=== PATIENT | female | born 1935 | race Caucasian/White ===

== ENCOUNTER → 2017-06-19 09:21 | Outpatient (CLI) | payer MEDICARE | END | disposition home or self-care (01) | LOC: D.RAD 09:21 | DX: R13.10 Dysphagia, unspecified (principal) ==

== ENCOUNTER 2017-10-03 02:02 | Emergency (ER) | payer MEDICARE ==
[2017-10-03 02:41] LABS: APPEARANCE CLEAR (CLEAR); BILIRUBIN NEGATIVE (NEGATIVE); COLOR YELLOW (YELLOW); GLUCOSE NEGATIVE (NEGATIVE); KETONE NEGATIVE (NEGATIVE); NITRITE NEGATIVE (NEGATIVE); PROTEIN NEGATIVE (NEGATIVE); SPECIFIC GRAVITY 1.015 (1.005-1.020); UROBILINOGEN NORMAL (NORMAL)
[2017-10-03 02:43] LABS: BACTERIA FEW /hpf (NONE SEEN); EPITHELIAL CELLS 0-5 /hpf (0-5); RED CELLS - URINE 0-5 /hpf (0-5); WHITE CELLS - URINE 0-5 /hpf (0-5)
[2017-10-03 03:12] LABS: BASOPHILS 0.3 % (0-2); EOSINOPHILS 3.5 % (0-7); HEMATOCRIT 38.2 % (36.0-48.0); HEMOGLOBIN 13.2 g/dL (12-16); IMMATURE GRANULOCYTES 0.2 % (0-5); LYMPHOCYTES 16.9 % (15-50); MCH 29.9 pg (26.0-34.0); MCHC 34.6 g/dL (31.0-37.0); MCV 86.4 fL (80.0-100.0); MEAN PLATELET VOLUME 11.6 fL (7.4-10.4); MONOCYTES 9.3 % (2-11); NEUTROPHILS 69.8 % (40-80); RBC 4.42 10x6/uL (4.00-5.40); RDW 12.6 % (11.5-14.5); WBC 12.8 10x3/uL (4.8-10.8)
[2017-10-03 03:22] LABS: PLATELET COUNT 239 10x3/uL (130-400)
== END 2017-10-03 03:51 | disposition home or self-care (01) ==
LOC: D.ER 02:02
PROVIDERS: Emergency Medicine
DX: R19.7 Diarrhea, unspecified (principal); I10 Essential (primary) hypertension

== ENCOUNTER → 2019-02-16 12:46 | Outpatient (CLI) | payer MEDICARE | END | disposition home or self-care (01) | LOC: D.US 12:46 | PROVIDERS: ATTEND Internal Medicine Nephrology | DX: N17.9 Acute kidney failure, unspecified (principal) ==

== ENCOUNTER 2019-10-19 10:51 | Emergency (ER) | payer MEDICARE ==
[~2019-10-19] VITALS: Ht 160 cm; Wt 60.0 kg
[2019-10-19 10:57] VITALS: Ht 160 cm; Wt 60.0 kg
[2019-10-19] MEDS ORDERED: LIORESAL 10 MG10 MG PO (10:59)
[2019-10-19] MEDS ORDERED: PROTONIX40 MG PO (10:59)
[2019-10-19] MEDS ORDERED: BETAPACE 80 MG80 MG PO (10:59)
[2019-10-19] MEDS ORDERED: TRIAMTERENE-HC1 EAC6 PO (10:59)
[2019-10-19] MEDS ORDERED: PRAVACHOL20 MG PO (10:59)
[2019-10-19] MEDS ORDERED: VITAMIN D250000 UNIT PO (11:00)
[2019-10-19 11:21] LABS: BASOPHILS 0.4 % (0-2); EOSINOPHILS 3.1 % (0-7); HEMATOCRIT 40.7 % (36.0-48.0); HEMOGLOBIN 13.6 g/dL (12-16); IMMATURE GRANULOCYTES 0.3 % (0-5); LYMPHOCYTES 18.6 % (15-50); MCH 28.7 pg (26.0-34.0); MCHC 33.4 g/dL (31.0-37.0); MCV 85.9 fL (80.0-100.0); MEAN PLATELET VOLUME 11.2 fL (7.4-10.4); MONOCYTES 8.6 % (2-11); PLATELET COUNT 243 10x3/uL (130-400); RBC 4.74 10x6/uL (4.00-5.40); RDW 12.5 % (11.5-14.5); WBC 7.5 10x3/uL (4.8-10.8)
[2019-10-19 11:33] LABS: CALC OSMOLALITY 291 mosm/kg (275-300); CALCIUM 10.1 mg/dL (8.5-10.1); CARBON DIOXIDE 29.9 mmol/L (21.0-32.0); CHLORIDE - SERUM 103 mmol/L (98-107); CREATININE - SERUM 1.8 mg/dL (0.6-1.3); GLUCOSE 141 mg/dL (74-106); POTASSIUM - SERUM 4.6 mmol/L (3.5-5.1); SODIUM 139 mmol/L (136-145); UREA NITROGEN 45 mg/dL (7-18); eGFR NON AFRICAN AMERICAN 28 mL/min (90-120)
[2019-10-19 11:41] LABS: ALBUMIN 3.9 g/dL (3.4-5.0); ALKALINE PHOSPHATASE 69 U/L (46-116); ALT (SGPT) 22 U/L (10-68); AMYLASE - SERUM 50 U/L (25-115); BILIRUBIN - TOTAL 0.33 mg/dL (0.2-1.3); LIPASE 90 U/L (73-393); PROTEIN - SERUM 7.2 g/dL (6.4-8.2); TROPONIN-I < 0.017 ng/mL (0.000-0.060)
[2019-10-19 11:52] LABS: APPEARANCE CLEAR (CLEAR); COLOR YELLOW (YELLOW)
[2019-10-19 11:53] LABS: BILIRUBIN NEGATIVE (NEGATIVE); GLUCOSE NEGATIVE (NEGATIVE); KETONE NEGATIVE (NEGATIVE); NITRITE NEGATIVE (NEGATIVE); PROTEIN NEGATIVE (NEGATIVE); SPECIFIC GRAVITY 1.015 (1.005-1.020); UROBILINOGEN NORMAL (NORMAL)
[2019-10-19] MEDS ORDERED: LEVSIN/ANASP0.125 MG PO (14:47)
[2019-10-19] MEDS ORDERED: ZOFRAN ODT4 MG/UDTAB PO (14:47)
[2019-10-19 15:46] VITALS: BP 140/78
== END 2019-10-19 15:51 | disposition home or self-care (01) ==
LOC: D.ER 10:51
PROVIDERS: Family Medicine
DX: R10.31 Right lower quadrant pain (principal); N28.9 Disorder of kidney and ureter, unspecified; R73.03 Prediabetes; I10 Essential (primary) hypertension; E78.5 Hyperlipidemia, unspecified; I25.2 Old myocardial infarction; K21.9 Gastro-esophageal reflux disease without esophagitis

== ENCOUNTER 2020-01-26 14:41 | Emergency (ER) | payer MEDICARE ==
[~2020-01-26] VITALS: Ht 160 cm; Wt 58.6 kg
[~2020-01-26 14:41] MED LIST: BETAPACE 80 MG80 MG PO; LEVSIN/ANASP0.125 MG PO; LIORESAL 10 MG10 MG PO; PRAVACHOL20 MG PO; PROTONIX40 MG PO; TRIAMTERENE-HC1 EAC6 PO; VITAMIN D250000 UNIT PO; ZOFRAN ODT4 MG/UDTAB PO
[2020-01-26 14:49] VITALS: Ht 160 cm; Wt 58.6 kg
[2020-01-26 15:10] LABS: BASOPHILS 0.5 % (0-2); EOSINOPHILS 4.7 % (0-7); HEMATOCRIT 35.2 % (36.0-48.0); HEMOGLOBIN 11.3 g/dL (12-16); LYMPHOCYTES 24.8 % (15-50); MCH 28.3 pg (26.0-34.0); MCHC 32.1 g/dL (31.0-37.0); MEAN PLATELET VOLUME 11.7 fL (7.4-10.4); MONOCYTES 8.3 % (2-11); NEUTROPHILS 61.7 % (40-80); PLATELET COUNT 240 10x3/uL (130-400); WBC 6.6 10x3/uL (4.8-10.8)
[2020-01-26 15:26] LABS: BILIRUBIN NEGATIVE (NEGATIVE); GLUCOSE NEGATIVE (NEGATIVE); KETONE NEGATIVE (NEGATIVE); NITRITE NEGATIVE (NEGATIVE); SPECIFIC GRAVITY 1.015 (1.005-1.020); UROBILINOGEN NORMAL (NORMAL)
[2020-01-26 15:27] LABS: ANION GAP 12.5 mmol/L (8-16); CALCIUM 9.4 mg/dL (8.5-10.1); CARBON DIOXIDE 26.5 mmol/L (21.0-32.0); CREATININE - SERUM 1.7 mg/dL (0.6-1.3)
[2020-01-26 15:28] LABS: BACTERIA FEW /hpf (NEGATIVE); RED CELLS - URINE 0-5 /hpf (0-5); WHITE CELLS - URINE 0-5 /hpf (NEGATIVE)
[2020-01-26 15:33] LABS: ALBUMIN 3.6 g/dL (3.4-5.0); BILIRUBIN - TOTAL 0.49 mg/dL (0.2-1.3); PROTEIN - SERUM 7.2 g/dL (6.4-8.2)
[2020-01-26] MEDS ORDERED: HYDROCODON-ACE1 EAC7 PO (17:46)
[2020-01-26] MEDS ORDERED: PREVACID30 MG PO (17:46)
[2020-01-26 18:03] VITALS: BP 110/50
== END 2020-01-26 18:04 | disposition home or self-care (01) ==
LOC: D.ER 14:41
PROVIDERS: Emergency Medicine
DX: R10.10 Upper abdominal pain, unspecified (principal); K21.9 Gastro-esophageal reflux disease without esophagitis

== ENCOUNTER 2020-05-06 01:08 | Observation (INO) | payer MEDICARE ==
[~2020-05-06] VITALS: Ht 160 cm; Wt 59.0 kg
[2020-05-06] VITALS (8 sets, daily range): BP systolic 128–185; BP diastolic 49–86; Ht 160 cm; Wt 59.0 kg
--- NOTE | ~2020-05-06 | HEMODYNAMI ---
PATIENT:TRINO SAMS MEDICAL RECORD: [id number] : 31 LOCATION:[place] [address] ADMISSION DATE: 05/06/20 Generatedon:05/06/202013:19 Patient name: TRINO SAMS Patient #: [id number] SSN: [id number] : 1935 Date of study: 05/06/2020 Page: Of Hemodynamic Procedure Report Patient Data Patient Demographics Procedure consent was obtained First Name: TRINO Gender: Female Last Name: LATRELL : 1935 Patient #: [id number] Age: 84 year(s) Race: SSN: [id number] Additional ID: [id number] Contact details [address]: [address] [place] [address] [address] State: [place] City: [facility] [place] Zip code: [address] Past Medical History History of disease Date Diagnosis Comments CAD Allergies: No known allergies Admission Admission Data Admission Date: 05/06/2020 Admission Time: 6:34 Room #: [facility]8 Height (in.): 59 BSA: 1.68 (m2) Height (cm.): 149.86 BMI: 32.32 (kg/m2) Weight (lbs.): 160 Weight (kg.): 72.57 Medications upon Admission Medications Dosage Times Administered Last Remarks per Delivery Day Date and Time Beta Gregg (any) Current Diagnosis Diagnosis Description Unstable angina Lab Results Lab Result Date: 05/06/2020 Lab Result Time: 0:00 Biochemistry Name Units Result Min Max BUN mg/dl 30 --(----)-* 7 18 Creatinine mg/dl 1.5 --(----)-* 0.6 1.3 eGFR ml/min 35 *-(----)-- 90 120 NONAFRICAN CBC Name Units Result Min Max Hemoglobin g/dl 10.5 *-(----)-- 13.5 17.5 Procedure Procedure Types Cath Procedure Diagnostic Procedure [facility] w/Coronaries Sedation Charges Moderate Sedation up to 30 minutes PCI Procedure Coronary Stent Coronary Stent Initial Hemochron ACT Test Procedure Description Procedure Date Procedure Date: 05/06/2020 Procedure Start Time: 12:49 Procedure End Time: 13:17 Procedure Staff Name Function Tone Romero MD Performing Physician Enriqueta Sidhu RT Monitor Farida Mccormick RN Nurse Sita Kelsey RT Scrub Procedure Data Cath Procedure Fluoroscopy Diagnostic fluoroscopy Total fluoroscopy Time: 7.6 time: 7.6 min min Diagnostic fluoroscopy Total fluoroscopy dose: 781 dose: 781 mGy mGy Contrast Material Contrast Material Type Amount (ml) Isovue 300 129 Entry Location Entry Primary Successful Side Size Upsize Upsize Entry Closure Succes sful Closure Location (Fr) 1 (Fr) 2 (Fr) Remarks Device Remarks Femoral Right 5 Fr 6 Fr artery Short Diagnostic catheters Device Type Used For End Catheter Placement MULTIPACK JL 4.0 5Fr Procedure catheter MULTIPACK 3DRC 5Fr Procedure catheter DIAGNOSTIC AR MOD 5Fr Procedure Catheter ([id number]) DIAGNOSTIC JR 4 5Fr Procedure catheter ([id number]) MULTIPACK Pigtail 5 Fr Ventriculography catheter Procedure Complications No complications Procedure Medications Medication Administration Route Dosage 0.9% NaCl I.V. 100 ml/hr Oxygen etCO2 Nasal cannula 2 l/min Lidocaine 2% added to field 20 Heparin Flush Bag added to field 2 bags (1000units/500ml NS) Versed I.V. 2 mg Fentanyl I.V. 50 mcg Heparin Bolus I.V. 5000 units Integrilin (Bolus I.V. 5 ml 2mg/ml) Integrilin (Bolus wasted 5 ml 2mg/ml) Plavix P.O. 600 mg Fentanyl I.V. 50 mcg Hemodynamics Rest BSA: 1.68 (m2) O2 Consumption: Estimated: 147.73 (ml/min) O2 Consumption indexed : Estimated:87.93 (ml/min/m) Heart Rate: 68 (bpm) Pressure Samples Time Site Value (mmHg) Purpose Heart Use Rate(bpm) 13:00 LV 166/11,16 Snapshot 67 13:01 AO 152/75(108) Pullback 67 13:01 LV 164/5,20 Pullback 67 Gradients Valve Time Site 1 Site 2 Mean SEP/DFP Peak To Heart Use (mmHg) (sec/min) Peak Rate (mmHg) (bpm) Aortic 13:01 LV AO 25 12 12 67 164/5,20 152/75(108) Calculations Valve P-P Mean Valve Index Valve Source Name Gradient Area Flow (cm2) Aortic 12 25 12 25 Snapshots Pre Cath Intra NCS Post Cath Vital Signs Time Heart Resp SPO2 etCO2 NIBP (mmHg) Rhythm Pain Sedation Rate (ipm) (%) (mmHg) Status Level (bpm) 12:40:15 61 14 98 23.1 Measuring NSR 0 (11) 10(A) , No pain 12:40:44 60 14 97 29 183/75(151) NSR 0 (11) 10(A) , No pain 12:45:14 63 16 97 22.4 193/80(143) NSR 0 (11) 10(A) , No pain 12:49:38 68 14 98 26.1 185/90(143) NSR 0 (11) 10(A) , No pain 12:54:07 71 14 97 31.3 189/89(150) NSR 0 (11) 10(A) , No pain 12:58:37 64 14 97 29 165/74(122) NSR 0 (11) 10(A) , No pain 13:03:03 68 13 98 32 175/72(142) NSR 0 (11) 10(A) , No pain 13:07:27 67 16 96 27.6 164/78(125) NSR 0 (11) 10(A) , No pain 13:11:49 71 16 96 29.8 179/84(137) NSR 0 (11) 10(A) , No pain 13:16:18 75 15 96 25.3 185/83(109) NSR 0 (11) 10(A) , No pain Medications Time Medication Route Dose Verified Delivered Reason Notes Effectiveness by by 12:36:56 0.9% NaCl I.V. 100 Tone Iqbal used for ml/hr Heather Jace procedure MD NOVAK 12:37:02 Oxygen etCO2 2 Tone Iqbal used for Nasal l/min Heather Jace procedure cannula MD NOVAK 12:37:07 Lidocaine 2% added 20ml Tone Wayne for local to vial [facility] anesthetic field MD SMITH 12:37:11 Heparin Flush added 2 Tone Schofieldory used for Bag to bags [facility] procedure (1000units/500ml field MD SMITH NS) 12:48:05 Versed I.V. 2 mg Tone Wayne for sedation [facility] Jose Miguel Romero MD, MD 12:48:15 Fentanyl I.V. 50 Tone Wayne for sedation mcg [facility] Jose Miguel Romero MD, MD 12:53:47 Fentanyl I.V. 50 Tone Iqbal for sedation mcg [facility] Jose Miguel Mccormick MD RN 12:55:08 Heparin Bolus I.V. 5000 Tone Wayne for verif ied units HeatherJose Miguel Romero anticoagulation with Dr. MD MD Hernandez 12:55:21 Integrilin I.V. 5 ml Tone Quinteroyla for (Bolus 2mg/ml) [facility] Jose Miguel Mccormick antiplatelet RN therapy 12:55:37 Integrilin wasted 5 ml Tone Loraa for (Bolus 2mg/ml) [facility] Jose Miguel Mccormick antiplatelet RN therapy 12:55:42 Plavix P.O. 600 Tone Loraa for mg [facility] Jose Miguel Mccormick antiplatelet RN therapy Procedure Log Time Note 12:16:10 Informed consent obtained and on chart 12:19:07 ACC Patient presents with Unstable Angina CCS Anginal Class 3--Marked limitation of physical activity, angina occurs with ordinary activity.. 12:19:24 ACCPatient has been prescribed/administered the following anti-anginal medication within the last 2 weeks: Beta Gregg 12:19:27 Procedure Status Urgent Heart Cath (IP). 12:19:31 Sita GARCIA(R) (CV) sent for patient. Start room use. 12:19:33 Time tracking: Regular hours (M-F 7:00 - 5:00) 12:19:36 Plan of Care:Hemodynamics will remain stable., Cardiac rhythm will remain stable., Comfort level will be maintained., Respiratory function will remain adequate., Patient/ family verbilizes understanding of procedure., Procedure tolerated without complication., Recovers from procedure without complications.. 12:19:40 Full Disclosure recording started 12:19:44 H&P Date Dictated: 05/06/2020 Within 30 days and on chart.. 12:19:48 Patient NPO since Midnight. 12:19:58 Patient allergic to No known allergies 12:20:01 Is the patient allergic to Iodine/contrast media? No. 12:20:02 Was the patient premedicated? N/A 12:20:06 Is patient on blood thinner?No 12:20:51 ACC The patient was administered the following blood thiners within the last 24 hours: ACCAspirin 12:21:31 Patient diabetic? No. 12:21:33 If diabetic: On Metformin? N/A 12:21:35 Patient not . Patient has had hysterectomy. 12:26:55 Patient Height : 59 inches 12:26:58 Patient Weight : 160 lbs 12:27:43 Current Diagnosis : Unstable angina 12:36:56 0.9% NaCl 100 ml/hr I.V. was administered by Farida Mccormick RN; used for procedure; Verbal order read back and verified. 12:37:02 Oxygen 2 l/min etCO2 Nasal cannula was administered by Farida Mccormick RN; used for procedure; Verbal order read back and verified. 12:37:07 Lidocaine 2% 20ml vial added to field was administered by Tone Romero MD; for local anesthetic; Verbal order read back and verified. 12:37:11 Heparin Flush Bag (1000units/500ml NS) 2 bags added to field was administered by Tone Romero MD; used for procedure; Verbal order read back and verified. 12:37:47 Lab Result : Hemoglobin 10.5 g/dl 12:37:47 Lab Result : eGFR NONAFRICAN 35 ml/min 12:37:47 Lab Result : BUN 30 mg/dl 12:37:47 Lab Result : Creatinine 1.5 mg/dl 12:38:11 Warm blankets applied, and jonel hugger turned on for patient comfort. 12:38:12 Correct patient and procedure confirmed by team. 12:38:13 ECG and BP/O2 sat monitors applied to patient. 12:38:25 Vital chart was started 12:38:26 Baseline sample Acquired. 12:38:30 Rhythm: sinus rhythm 12:38:43 Snore? No 12:38:45 Sleep apnea? No 12:38:52 Patient pain scale 0/10 ?. 12:38:59 IV patent on arrival in right forearm with 0.9% NaCl at [facility]. 12:39:04 Lab results completed and on chart. 12:39:08 Right groin area was prepped with chlora-prep and draped in sterile fashion 12:39:10 Sharps counted by scrub and verified by R.N. 12:47:51 Physician arrived 12:47:52 --------ALL STOP TIME OUT------ 12:47:53 Final Timeout: patient, procedure, and site verified with staff and physician. All members of the team are in agreement. 12:47:54 Right groin site verified by team. 12:47:58 Fire Safety Assessment: A--An alcohol-based skin anteseptic being used preoperatively., C--Open oxygen or nitrous oxide is being used., D--An ESU, laser, or fiber-optic light is being used. 12:48:01 Physical assessment completed. ASA score P 2 - A patient with mild systemic disease as per Tone Romero MD. 12:48:05 Versed 2 mg I.V. was administered by Tone Romero MD; for sedation; Verbal order read back and verified. 12:48:06 3b) 30-44 Moderately reduced kidney function. 12:48:12 Maximum allowable contrast dose (3.7 X eGFR X 0.75)97 ml. 12:48:15 Fentanyl 50 mcg I.V. was administered by Tone Romero MD; for sedation; Verbal order read back and verified. 12:48:17 Sedation plan: IV Moderate Sedation Medication:Versed, Fentanyl 12:48:22 Use device set Femoral Dx 12:48:23 ACIST Syringe (93202) opened to sterile field. 12:48:23 Bag Decanter (2002S) opened to sterile field. 12:48:24 Medline Cath Pack ([id number]) opened to sterile field. 12:48:25 ACIST Hand Control (26379) opened to sterile field. 12:48:25 ACIST Manifold (39961) opened to sterile field. 12:48:26 DIAGNOSTIC Multipack 5Fr catheter set (BG9312) opened to sterile field. 12:48:35 Tegaderm 4 x 4 (1626W) opened to sterile field. 12:48:36 SHEATH 5FR [place] (ZLX805) opened to sterile field. 12:48:37 EMERALD Guide Wire (583-579) opened to sterile field. 12:48:42 Procedure started. 12:49:08 Local anesthetic to right femoral artery with Lidocaine 2% by Tone Romero MD.INITIAL ACCESS ONLY 12:49:23 A 5 Fr sheath was inserted into the Right Femoral artery 12:49:54 A MULTIPACK JL 4.0 5Fr catheter was advanced over the wire and used for Procedure. 12:49:57 LCA angiography performed. 12:52:50 GUIDE 6FR XBLAD 3.5 catheter ([id number]) opened to sterile field. 12:52:50 INFLATOR Merit BasixCompak (IS4480) opened to sterile field. 12:52:51 WHISPER 300cm guide wire (0853529NM) opened to sterile field. 12:52:52 SHEATH 6FR [place] (CCG035) opened to sterile field. 12:53:07 Sheath upsized to a 6 Fr Short. 12:53:26 A MULTIPACK 3DRC 5Fr catheter was advanced over the wire and used for Procedure. 12:53:47 Fentanyl 50 mcg I.V. was administered by Farida Mccormick RN; for sedation; Verbal order read back and verified. 12:53:55 UNABLE TO CANNULATE THE RIGHT 12:54:14 A DIAGNOSTIC AR MOD 5Fr Catheter (275397W) was advanced over the wire and used for Procedure. 12:55:08 Heparin Bolus 5000 units I.V. was administered by Tone Romero MD; for anticoagulation; verified with Dr. Hernandez Verbal order read back and verified. 12:55:21 Integrilin (Bolus 2mg/ml) 5 ml I.V. was administered by Farida Mccormick RN; for antiplatelet therapy; Verbal order read back and verified. 12:55:37 Integrilin (Bolus 2mg/ml) 5 ml wasted was administered by Farida Mccormick RN; for antiplatelet therapy; Verbal order read back and verified. 12:55:42 Plavix 600 mg P.O. was administered by Farida Mccormick RN; for antiplatelet therapy; Verbal order read back and verified. 12:56:43 UNABLE TO CANNULATE 12:57:35 A DIAGNOSTIC JR 4 5Fr catheter ([id number]) was advanced over the wire and used for Procedure. 12:59:45 RCA angiography performed. 12:59:48 Catheter removed. 12:59:55 A MULTIPACK Pigtail 5 Fr catheter was advanced over the wire and used for Ventriculography. 13:00:06 LV angiography performed. 13:00:10 LV gram done using SALINAS 13:01:05 EF : 55 % 13:01:47 6 Fr XBLAD3.5 guide catheter was inserted over the wire 13:01:53 WHISPER wire advanced. 13:02:28 Wire advanced across lesion. 13:07:05 Inflate balloon Inflation number: 1 A EUPHORA 2.5 x 15 Balloon ([id number]) was prepped and advanced across the Mid CX 90, then inflated to 10 JAYNE for 0:32 (min:sec) 0. 13:07:39 Balloon removed over the wire. 13:10:45 Place stent Inflation Number: 1 A INTEGRITY RX 3.0 x 15 stent ([id number]) was prepped and advanced across the Mid CX1 90. The stent was deployed at 14 JAYNE for 0:21 (min:sec) 0. 13:11:08 EXOSEAL 6Fr (EX600) opened to sterile field. 13:11:37 Inflation number: 2 The stent balloon was then re-inflated across the Mid CX1 0 to 8 JAYNE for 0:20 (min:sec) . 13:12:51 Stent catheter was removed intact over wire. 13:12:52 Wire removed. 13:12:54 Guide catheter removed. 13:13:32 Procedure ended.(Physican Out) 13:13:43 Fluoroscopy time 07.60 minutes. 13:13:47 Fluoroscopy dose: 781 mGy 13:13:47 Flurop Dose total: 781 13:13:53 Dose Area Product 85823 mGy/cm. 13:14:39 Contrast amount:Isovue 300 129ml. 13:14:46 Maximum allowable dose exceeded? Yes. 13:14:53 Insertion/operative site no bleeding no hematoma. 13:14:57 Post-op/insertion site Right Femoral artery dressed using a 4 x 4 and Tegaderm. 13:15:00 Post right femoral artery:stable 13:15:08 Post-procedure physical assessment completed. ASA score P 3 - A patient with severe systemic disease as per Tone Romero MD. 13:15:11 Post procedure rhythm: sinus rhythm 13:16:02 Procedure type changed to Cath procedure, Diagnostic procedure, LHC, LHC w/Coronaries, Sedation Charges, Moderate Sedation up to 30 minutes, PCI procedure, Coronary Stent, Coronary Stent Initial, Hemochron ACT Test 13:16:03 Procedure and supply charges have been captured, reviewed, submitted and are correct. 13:17:25 Procedure Complication : No complications 13:17:28 Vital chart was stopped 13:17:30 [facility] Findings: mild to moderate CAD (<70%) 13:17:32 Operative report dictated upon procedure completion. 13:17:33 See physician's report for complete and final results. 13:17:35 Report given to [facility]. 13:17:39 Patient transfered to [facility] with Stretcher. 13:17:43 Procedure ended. 13:17:43 Full Disclosure recording stopped 13:17:46 End room use (Document Last) 13:17:48 ACT drawn and resulted at 262 seconds. (normal therapeutic range 180-240 seconds). 13:17:57 ACC-PCI Only Patient was given prescriptions, or instructed by Tone Romero MD to start/continue the following medications upon discharge: Plavix Intervention Summary Intervention Notes Time ActionType Lesion and Equipment Action# Pressure Duration Attributes Used 13:07:05 Inflate Mid CX EUPHORA 2.5 1 10 00:33 balloon x 15 Balloon ([id number]) 13:10:45 Place stent Mid CX1 INTEGRITY RX 1 14 00:21 3.0 x 15 stent ([id number]) 13:11:37 Reinflate Mid CX1 INTEGRITY RX 2 8 00:20 stent 3.0 x 15 balloon stent ([id number]) Device Usage Item Name Manufacture Quantity Catalog Hospital Part Current Minimal Lot# / Number Charge Number Stock Stock Serial# Code ACIST Acist 1 70729 266177 412494 842102 20 Syringe Medical (72841) Systems Inc Bag Decanter Microtek 1 2001S 238507 97187 010389 5 (2001S) Medical Inc. Medline Cath Medline 1 [id number] 700277 51480 931938 5 Pack ([id number]) ACIST Hand Acist 1 70161 997552 994623 021041 5 Control Medical (96397) Systems Inc ACIST Acist 1 05319 542937 379268 859250 5 Manifold Medical (27039) Systems Inc DIAGNOSTIC Cardinal 1 QP6592 671277 19057 608069 30 Eventdoo Health 5Fr catheter set (YL0555) Tegaderm 4 x 3M 1 1626W 461268 927841 579228 5 4 (1626W) SHEATH 5FR Terumo 1 PRW241 359413 333485 493808 5 [place] (IHB045) EMERALD Cardinal 1 502-455 590050 090971 237918 5 Guide Wire Health (502-455) MULTIPACK JL Cardinal 1 133837 5 4.0 5Fr Health catheter GUIDE 6FR Cardinal 1 [id number] 755829 617240 182863 10 XBLAD 3.5 Health catheter (34904201) INFLATOR Merit 1 JV5772 694736 290125 634356 15 [facility] Medical BasixCompak (SU7212) WHISPER Jones 1 [id number] 928844 515801 613761 5 300cm guide Vascular wire (1429642SM) SHEATH 6FR Terumo 1 TSN417 454069 744735 691551 40 [place] (VSW204) MULTIPACK Cardinal 1 381477 5 3DRC 5Fr Health catheter DIAGNOSTIC Cardinal 1 652689A 708936 349308 359949 15 AR MOD 5Fr Health Catheter (565386Q) DIAGNOSTIC Cardinal 1 548116N 280020 334619 189486 5 JR 4 5Fr Health catheter (680624P) MULTIPACK Cardinal 1 572569 5 Pigtail 5 Fr Health catheter EUPHORA 2.5 Medtronic 1 [id number] 624380 685190 124892 5 [id number] x 15 Balloon ([id number]) INTEGRITY RX Medtronic 1 [id number] 664157 490272 461183 5 [id number] 3.0 x 15 stent ([id number]) EXOSEAL 6Fr Cardinal 1 EX600 102972 715377 091921 10 (EX600) Health Signature Audit [place] Stage Time Signature Unsigned Intra-Procedure 05/06/2020 Enriqueta Sidhu 1:18:47 PM RT(R) Intra-Procedure 05/06/2020 Tone Belle 1:19:16 PM Jose Miguel [facility] [address] [place] [address]
--- NOTE | ~2020-05-06 | HEMODYNAMI ---
PATIENT:TRINO SAMS MEDICAL RECORD: [id number] : 31 LOCATION:[place] [id number] ADMISSION DATE: 05/06/20 Generatedon:05/07/20209:47 Patient name: TRINO SAMS Patient #: [id number] SSN: [id number] : 1935 Date of study: 05/07/2020 Page: Of Hemodynamic Procedure Report Patient Data Patient Demographics Procedure consent was obtained First Name: TRINO Gender: Female Last Name: LATRELL : 1935 Patient #: [id number] Age: 84 year(s) Race: SSN: [id number] Additional ID: [id number] Contact details Address: [address] [place] [address] [address] State: [place] City: [facility] Zip code: [address] Past Medical History History of disease Date Diagnosis Comments CAD Allergies: No allergy information Admission Admission Data Admission Date: 05/06/2020 Admission Time: 6:34 Room #: [facility]8 Height (in.): 59 BSA: 1.68 (m2) Height (cm.): 149.86 BMI: 32.32 (kg/m2) Weight (lbs.): 160 Weight (kg.): 72.57 Medications upon Admission Medications Dosage Times Administered Last Remarks per Delivery Day Date and Time Beta Gregg (any) Current Diagnosis Diagnosis Description Unstable angina Lab Results Lab Result Date: 05/07/2020 Lab Result Time: 0:00 Biochemistry Name Units Result Min Max BUN mg/dl 23 --(----)-* 7 18 Creatinine mg/dl 1.3 --(---*)-- 0.6 1.3 eGFR ml/min 41 *-(----)-- 90 120 NONAFRICAN CBC Name Units Result Min Max Hematocrit % 32.9 *-(----)-- 42 54 Hemoglobin g/dl 10.6 *-(----)-- 13.5 17.5 Procedure Procedure Types Cath Procedure Diagnostic Procedure Sedation Charges Moderate Sedation up to 15 minutes PCI Procedure Coronary Stent Coronary Stent Initial Hemochron ACT Test Procedure Description Procedure Date Procedure Date: 05/07/2020 Procedure Start Time: 9:12 Procedure Staff Name Function Tone Romero MD Performing Physician Enriqueta Sidhu RT Scrub Sita Kelsey RT Monitor Lillie Alvarado RT Photographer News Farida Mccormick RN Nurse Procedure Data Cath Procedure Fluoroscopy Diagnostic fluoroscopy Total fluoroscopy Time: 6 time: 6 min min Diagnostic fluoroscopy Total fluoroscopy dose: 261 dose: 261 mGy mGy Contrast Material Contrast Material Type Amount (ml) Isovue 300 64 Entry Location Entry Primary Successful Side Size Upsize Upsize Entry Closure Succes sful Closure Location (Fr) 1 (Fr) 2 (Fr) Remarks Device Remarks Femoral Right 6 Fr Exoseal artery Short Estimated blood loss: 10 ml Procedure Complications No complications Procedure Medications Medication Administration Route Dosage 0.9% NaCl I.V. 100 ml/hr Oxygen etCO2 Nasal cannula 2 l/min Lidocaine 2% added to field 20 Heparin Flush Bag added to field 2 bags (1000units/500ml NS) Versed I.V. 2 mg Fentanyl I.V. 50 mcg Heparin Bolus I.V. 5000 units Fentanyl I.V. 50 mcg Hemodynamics Rest BSA: 1.68 (m2) HGB: 10.6 (g/dl) O2 Consumption: Estimated: 228.48 (ml/min) O2 Co nsumption indexed: Estimated:136 (ml/min/m) Pre Cath Intra NCS Post Cath Vital Signs Time Heart Resp SPO2 etCO2 NIBP (mmHg) Rhythm Pain Sedation Rate (ipm) (%) (mmHg) Status Level (bpm) 8:59:24 74 13 96 0 Measuring NSR 0 (11) 10(A) , No pain 9:00:23 75 26 95 0 170/58(82) NSR 0 (11) 10(A) , No pain 9:04:49 74 18 97 10.4 157/74(118) NSR 0 (11) 10(A) , No pain 9:09:11 70 17 98 26.1 159/68(116) NSR 0 (11) 10(A) , No pain 9:13:30 77 10 97 28.4 161/71(121) NSR 0 (11) 10(A) , No pain 9:17:52 78 9 95 29.9 170/78(123) NSR 0 (11) 10(A) , No pain 9:22:18 78 11 95 29.9 154/74(111) NSR 0 (11) 10(A) , No pain Medications Time Medication Route Dose Verified Delivered Reason Notes Effectiveness by by 8:57:43 0.9% NaCl I.V. 100 Tone Farida used for ml/hr [place] [facility] procedure MD NOVAK 8:57:49 Oxygen etCO2 2 Tone Farida used for Nasal l/min [facility] procedure cannula MD NOVAK 8:57:57 Lidocaine 2% added 20ml Tone Wayne for local to vial [facility] anesthetic field MD SMITH 8:58:01 Heparin Flush added 2 Tone Tone used for Bag to bags [facility] procedure (1000units/500ml field MD SMITH NS) 9:11:09 Fentanyl I.V. 50 Tone Farida for sedation mcg [facility] Mccormick MD RN 9:11:57 Versed I.V. 2 mg Tone Farida for sedation [facility] Mccormick MD RN 9:17:46 Heparin Bolus I.V. 5000 Tone Farida for verifi ed units [facility] anticoagulation with Dr. SMITH RN [place] 9:18:21 Fentanyl I.V. 50 Tone Farida for sedation [facility] Jose Miguel Mccormick MD barrel cutter Log Time Note 8:45:28 Informed consent obtained and on chart 8:45:49 Patient Weight : 160 lbs 8:45:49 Patient Height : 59 inches 8:47:03 Time tracking: Call back (After hours or weekends) 8:47:03 Procedure Status PCI. 8:47:09 Enriqueta GARCIA(R) sent for patient. Start room use. 8:47:15 Plan of Care:Hemodynamics will remain stable., Cardiac rhythm will remain stable., Comfort level will be maintained., Respiratory function will remain adequate., Patient/ family verbilizes understanding of procedure., Procedure tolerated without complication., Recovers from procedure without complications.. 8:47:44 H&P Date Dictated: 05/06/2020 ER History on chart.. 8:47:50 Patient allergic to No allergy information 8:48:18 Lab Result : eGFR NONAFRICAN 41 ml/min 8:48:18 Lab Result : Hematocrit 32.9 % 8:48:18 Lab Result : Hemoglobin 10.6 g/dl 8:48:18 Lab Result : BUN 23 mg/dl 8:48:18 Lab Result : Creatinine 1.3 mg/dl 8:55:02 Patient received from Med II to CCL 1 Alert and oriented. Tansferred to table in Supine position. 8:55:03 Correct patient and procedure confirmed by team. 8:55:03 Warm blankets applied, and jonel hugger turned on for patient comfort. 8:55:04 ECG and BP/O2 sat monitors applied to patient. 8:55:05 Pre-op teaching completed and patient verbalized understanding. 8:55:05 Pre-procedure instructions explained to patient. 8:55:07 Family unavailable. 8:55:08 Patient NPO since Midnight. 8:55:09 Is patient on blood thinner?Yes 8:55:13 ACC The patient was administered the following blood thiners within the last 24 hours: ACCPlavix 8:55:51 Patient diabetic? No. 8:55:54 Previous problem with sedation/anesthesia? No ? 8:55:56 Snore? No 8:55:57 Sleep apnea? No 8:55:58 Deviated septum? No 8:55:59 Opens mouth fully? Yes 8:56:00 Sticks out tongue? Yes 8:56:01 Airway obstruction? No ? 8:56:05 Dentures? No ? 8:56:10 Pre procedure: right dorsailis pedis pulse 1+ Palpable, but thready & weak; easily obliterated 8:56:12 Patient pain scale 0/10 ?. 8:56:17 IV patent on arrival in right hand with 0.9% NaCl at KVO. 8:56:19 Lab results completed and on chart. 8:56:22 Alarms reviewed by R. N. 8:56:22 Right groin area was prepped with chlora-prep and draped in sterile fashion 8:56:23 Sharps counted by scrub and verified by R.N. 8:56:23 Sharps counted by scrub and verified by R.N. 8:56:28 Use device set CATH PACK 8:56:29 ACIST Syringe (23354) opened to sterile field. 8:56:30 Medline Cath Pack ([id number]) opened to sterile field. 8:56:30 ACIST Manifold (39815) opened to sterile field. 8:56:30 ACIST Hand Control (88259) opened to sterile field. 8:56:31 EMERALD Guide Wire (456-569) opened to sterile field. 8:56:31 Bag Decanter (2002S) opened to sterile field. 8:56:50 INFLATOR Merit BasixCompak (QG3984) opened to sterile field. 8:56:50 SHEATH 6FR Emma (WNL367) opened to sterile field. 8:56:51 WHISPER 300cm guide wire ([id number]) opened to sterile field. 8:57:34 Vital chart was started 8:57:43 0.9% NaCl 100 ml/hr I.V. was administered by Farida Mccormick RN; used for procedure; Verbal order read back and verified. 8:57:49 Oxygen 2 l/min etCO2 Nasal cannula was administered by Farida Mccormick RN; used for procedure; Verbal order read back and verified. 8:57:54 Full Disclosure recording started 8:57:57 Lidocaine 2% 20ml vial added to field was administered by Tone Romero MD; for local anesthetic; Verbal order read back and verified. 8:58:01 Heparin Flush Bag (1000units/500ml NS) 2 bags added to field was administered by Tone Romero MD; used for procedure; Verbal order read back and verified. 9:02:08 Risk of Mortality: 1.1 9:02:10 Risk of blood transfusion: 3.4 9:02:14 Risk of WILFRED: 3.8 9:10:50 Final Timeout: patient, procedure, and site verified with staff and physician. All members of the team are in agreement. 9:10:50 --------ALL STOP TIME OUT------ 9:10:52 Right groin site verified by team. 9:10:55 Fire Safety Assessment: A--An alcohol-based skin anteseptic being used preoperatively., C--Open oxygen or nitrous oxide is being used., D--An ESU, laser, or fiber-optic light is being used. 9:10:59 Physical assessment completed. ASA score P 2 - A patient with mild systemic disease as per Tone Romero MD. 9:11:04 3b) 30-44 Moderately reduced kidney function. 9:11:07 Maximum allowable contrast dose (3.7 X eGFR X 0.75)114 ml. 9:11:09 Fentanyl 50 mcg I.V. was administered by Farida Mccormick RN; for sedation; Verbal order read back and verified. 9:11:10 Sedation plan: IV Moderate Sedation Medication:Versed, Fentanyl 9:11:57 Versed 2 mg I.V. was administered by Farida Mccormick RN; for sedation; Verbal order read back and verified. 9:12:03 Procedure started. 9:12:37 Local anesthetic to right femoral artery with Lidocaine 2% by Tone Romero MD.INITIAL ACCESS ONLY 9:12:53 GUIDE 6FR AR 1.0 catheter (RD2YV83) opened to sterile field. 9:13:31 A 6 Fr Short sheath was inserted into the Right Femoral artery 9:13:43 Pre PCI Site: [place] RCA has 90% stenosis. 9:13:48 6 Fr AR 1 guide catheter was inserted over the wire 9:15:47 Guide Catheter removed. unable to cannulate vessel. 9:15:52 GUIDE 6FR AR 2.0 catheter (CO0MW70) opened to sterile field. 9:16:35 6 Fr AR 2 guide catheter was inserted over the wire 9:17:46 Heparin Bolus 5000 units I.V. was administered by Farida Mccormick RN; for anticoagulation; verified with Dr. Hernandez Verbal order read back and verified. 9:18:21 Fentanyl 50 mcg I.V. was administered by Farida Mccormick RN; for sedation; Verbal order read back and verified. 9:19:15 WHISPER 300 wire advanced. 9:23:30 Wire advanced across lesion. 9:25:21 Place stent Inflation Number: 1 A INTEGRITY RX 3.0 x 26 stent ([id number]) was prepped and advanced across the Prox RCA . The stent was deployed at 14 JAYNE for 0:00 (min:sec) . 9:25:36 Stent catheter was removed intact over wire. 9:25:49 Guide catheter removed. 9:25:49 Wire removed. 9:26:21 EXOSEAL 6Fr (EX600) opened to sterile field. 9:27:30 Procedure ended.(Physican Out) 9:27:55 Sheath removed intact; hemostasis achieved with Exoseal to the Right Femoral artery. 9:43:02 system shut off after procedure out time. back in to log at 0942 9:43:05 Fluoroscopy time 06.00 minutes. 9:43:09 Fluoroscopy dose: 261 mGy 9:43:09 Flurop Dose total: 261 9:43:13 Dose Area Product 71208 mGy/cm. 9:43:15 Contrast amount:Isovue 300 64ml. 9:43:17 Maximum allowable dose exceeded? No. 9:43:18 Sharps counted by scrub and verified by R.N. 9:43:21 Post-op/insertion site Right Femoral artery dressed using a 4 x 4 and Tegaderm. 9:43:23 Post-procedure physical assessment completed. ASA score P 2 - A patient with mild systemic disease as per Tone Romero MD. 9:43:26 Post procedure rhythm: unchanged. 9:43:28 Estimated blood loss: 10 ml 9:43:29 Post procedure instruction explained to patient.Patient verbalizes understanding. 9:43:30 Patient needs reinforcement of post procedure teaching. 9:44:06 Procedure type changed to Cath procedure, Diagnostic procedure, Sedation Charges, Moderate Sedation up to 15 minutes, PCI procedure, Coronary Stent, Coronary Stent Initial, Hemochron ACT Test 9:44:13 ACT drawn and resulted at 203 seconds. (normal therapeutic range 180-240 seconds). 9:44:46 Procedure and supply charges have been captured, reviewed, submitted and are correct. 9:44:49 Procedure Complication : No complications 9:45:20 [facility] Findings: MVD- PCI performed (see procedure note) 9:45:21 Operative report dictated upon procedure completion. 9:45:21 See physician's report for complete and final results. 9:45:22 Report given to [facility]. 9:45:24 Patient transfered to [facility] with Bed. 9:45:30 End room use (Document Last) 9:45:44 End room use (Document Last) Intervention Summary Intervention Notes Time ActionType Lesion and Equipment Action# Pressure Duration Attributes Used 9:25:21 Place stent Prox RCA INTEGRITY RX 1 14 00:00 3.0 x 26 stent ([id number]) Device Usage Item Name Manufacture Quantity Catalog Hospital Part Current Minimal Lot# / Number Charge Number Stock Stock Serial# Code ACIST Acist 1 01729 592878 646200 336679 20 Syringe Medical (04777) Systems Inc ACIST Hand Acist 1 32315 529574 386718 094410 5 Control Medical (95226) Systems Inc ACIST Acist 1 46604 088576 332315 898751 5 Manifold Medical (02433) Systems Inc Medline Cath Medline 1 [id number] 018874 94293 565108 5 Pack ([id number]) Bag Decanter Microtek 1 2001S 076241 85461 478484 5 (2001S) Medical Inc. EMERALD Cardinal 1 502-455 284668 291686 570072 5 Guide Wire Health (502-455) SHEATH 6FR Terumo 1 YYR852 071978 999761 471541 40 Emma (KLI894) INFLATOR Merit 1 FB8414 519714 098084 782947 15 [facility] Medical BasixCompak (JR5984) WHISPER Jones 1 [id number] 677385 765706 086754 5 300cm guide Vascular wire ([id number]) GUIDE 6FR AR Medtronic 1 [id number] 420878 56523 361862 1 1.0 catheter (NP5AT10) GUIDE 6FR AR Medtronic 1 [id number] 387624 10657 416828 1 2.0 catheter (KL3BX63) INTEGRITY RX Medtronic 1 [id number] 010456 898847 079230 5 [id number] 3.0 x 26 stent ([id number]) EXOSEAL 6Fr Cardinal 1 EX600 895398 069485 250934 10 (EX600) Health Signature Audit [place] Stage Time Signature Unsigned Intra-Procedure 05/07/2020 Lillie Alvarado 9:45:44 AM RT(R) Intra-Procedure 05/07/2020 Farida Mccormick 9:47:01 AM RN Intra-Procedure 05/07/2020 Tone Belle 9:47:13 AM Jose Miguel SMITH [place] [id number] [place] [address]
[~2020-05-06 01:08] MED LIST changes: +HYDROCODON-ACE1 EAC7 PO; +PREVACID30 MG PO
[2020-05-06] MEDS ORDERED: ALDACTONE25 MG PO (01:23)
[2020-05-06] MEDS ORDERED: ERGOCAL PO (01:24)
[2020-05-06 01:51] LABS: BASOPHILS 0.4 % (0-2); EOSINOPHILS 3.9 % (0-7); HEMATOCRIT 32.8 % (36.0-48.0); HEMOGLOBIN 10.6 g/dL (12-16); IMMATURE GRANULOCYTES 0.1 % (0-5); LYMPHOCYTES 27.3 % (15-50); MCH 28.4 pg (26.0-34.0); MCHC 32.3 g/dL (31.0-37.0); MCV 87.9 fL (80.0-100.0); MEAN PLATELET VOLUME 11.1 fL (7.4-10.4); MONOCYTES 8.7 % (2-11); NEUTROPHILS 59.6 % (40-80); RBC 3.73 10x6/uL (4.00-5.40); RDW 13.5 % (11.5-14.5); WBC 7.1 10x3/uL (4.8-10.8)
[2020-05-06 01:57] LABS: PLATELET COUNT 166 10x3/uL (130-400)
[2020-05-06 02:07] LABS: CALC OSMOLALITY 293 mosm/kg (275-300); CALCIUM 9.9 mg/dL (8.5-10.1); CARBON DIOXIDE 29.3 mmol/L (21.0-32.0); CHLORIDE - SERUM 108 mmol/L (98-107); CREATININE - SERUM 1.5 mg/dL (0.6-1.3); GLUCOSE 145 mg/dL (74-106); POTASSIUM - SERUM 3.6 mmol/L (3.5-5.1); SODIUM 143 mmol/L (136-145); UREA NITROGEN 30 mg/dL (7-18); eGFR NON AFRICAN AMERICAN 35 mL/min (90-120)
[2020-05-06 02:14] LABS: APTT 27.8 SECONDS (22.8-39.4); INR 1.03 (0.85-1.17); PROTIME 13.5 SECONDS (11.6-15.0)
[2020-05-06 02:23] LABS: ALBUMIN 3.5 g/dL (3.4-5.0); ALKALINE PHOSPHATASE 60 U/L (30-120); ALT (SGPT) 19 U/L (10-68); BILIRUBIN - TOTAL 0.36 mg/dL (0.2-1.3); CKMB 1.7 U/L (0.0-3.6); CREATINE KINASE 126 UL (21-215); MAGNESIUM - SERUM 1.9 mg/dL (1.8-2.4); PROTEIN - SERUM 6.6 g/dL (6.4-8.2); TROPONIN-I < 0.017 ng/mL (0.000-0.060)
[2020-05-06 07:26] LABS: CKMB 1.5 U/L (0.0-3.6); CREATINE KINASE 105 UL (21-215); TROPONIN-I < 0.017 ng/mL (0.000-0.060)
[2020-05-06 09:15] LABS: BASOPHILS 0.5 % (0-2); EOSINOPHILS 4.6 % (0-7); HEMATOCRIT 32.7 % (36.0-48.0); HEMOGLOBIN 10.5 g/dL (12-16); IMMATURE GRANULOCYTES 0.2 % (0-5); LYMPHOCYTES 25.4 % (15-50); MCH 28.2 pg (26.0-34.0); MCHC 32.1 g/dL (31.0-37.0); MCV 87.7 fL (80.0-100.0); MEAN PLATELET VOLUME 11.7 fL (7.4-10.4); MONOCYTES 9.4 % (2-11); NEUTROPHILS 59.9 % (40-80); PLATELET COUNT 167 10x3/uL (130-400); RBC 3.73 10x6/uL (4.00-5.40); RDW 13.5 % (11.5-14.5); WBC 6.1 10x3/uL (4.8-10.8)
[2020-05-06 09:30] LABS: CALCIUM 9.3 mg/dL (8.5-10.1); CARBON DIOXIDE 26.6 mmol/L (21.0-32.0); CREATININE - SERUM 1.5 mg/dL (0.6-1.3); LDL-HDL RATIO 1.8 ratio (1.5-3.5); POTASSIUM - SERUM 3.6 mmol/L (3.5-5.1)
[2020-05-06 12:24] LABS: CKMB 2.3 U/L (0.0-3.6); CREATINE KINASE 106 UL (21-215)
--- NOTE | 2020-05-06 12:25 | NUR ---
PRE-OPS GIVEN. TO [employer]ER BY BED.
[2020-05-06 12:26] LABS: TROPONIN-I < 0.017 ng/mL (0.000-0.060)
--- NOTE | 2020-05-06 13:48 | NUR ---
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 RIGHT GROIN STABLE WITHOUT BLEEDING OR HEMATOMA NOTED. WILL MONITOR.
--- NOTE | 2020-05-06 17:30 | NUR ---
BED REST UP. GROIN STABLE.
[2020-05-06 19:18] LABS: CKMB 2.1 U/L (0.0-3.6); CREATINE KINASE 88 UL (21-215)
[2020-05-06 19:25] LABS: TROPONIN-I 0.083 ng/mL (0.000-0.060)
--- NOTE | 2020-05-06 19:48 | NUR ---
RECEIVED BEDSIDE REPORT AND ROUNDING COMPLETE. PATIENT IS ALERT AND ORIENTED, RESTING COMFORTABLY IN BED. RESPIRATIONS ARE EVEN AND UNLABORED. NO S/S OF DISTRESS. NO C/O PAIN. CALL LIGHT WITHIN REACH. WILL CPOC.
[2020-05-07 00:32] VITALS: BP 120/58
[2020-05-07 05:49] LABS: BASOPHILS 0.3 % (0-2); EOSINOPHILS 3.4 % (0-7); HEMATOCRIT 32.9 % (36.0-48.0); HEMOGLOBIN 10.6 g/dL (12-16); IMMATURE GRANULOCYTES 0.1 % (0-5); LYMPHOCYTES 18.7 % (15-50); MCHC 32.2 g/dL (31.0-37.0); MEAN PLATELET VOLUME 11.2 fL (7.4-10.4); MONOCYTES 11.2 % (2-11); NEUTROPHILS 66.3 % (40-80); PLATELET COUNT 164 10x3/uL (130-400); RBC 3.78 10x6/uL (4.00-5.40); RDW 13.5 % (11.5-14.5)
[2020-05-07 06:03] VITALS: BP 126/63
[2020-05-07 06:11] LABS: ALBUMIN 3.1 g/dL (3.4-5.0); ANION GAP 9.9 mmol/L (8-16); BILIRUBIN - TOTAL 0.43 mg/dL (0.2-1.3); CALCIUM 9.1 mg/dL (8.5-10.1); CARBON DIOXIDE 26.1 mmol/L (21.0-32.0); CREATININE - SERUM 1.3 mg/dL (0.6-1.3); PROTEIN - SERUM 6.1 g/dL (6.4-8.2)
--- NOTE | 2020-05-07 07:15 | NUR ---
RECEIVED PT IN BED EYES CLOSED RESP UNLABORED SKIN W/D COLOR WNL NAD NOTED
[2020-05-07 08:30] VITALS: BP 162/66
[2020-05-07 11:30] VITALS: BP 159/71
[2020-05-07] MEDS ORDERED: PLAVIX75 MG PO (11:34)
[2020-05-07] MEDS ORDERED: LOW DOSE ASPIRI81 M1 PO (11:34)
[2020-05-07 15:30] VITALS: BP 166/66
--- NOTE | 2020-05-07 16:00 | NUR ---
REVIEWED DISCHARGE INSTRUCTIONS WITH PT STATES UNDERSTANDING COPY GIVEN DCD SALINE LOCK TO RFA WITH IV CATHETER INTACT SITE FREE OF REDNESS OR EDEMA PT DISCHARGED HOME IN STABLE CONDITION WITH ALL PERSONAL BELONGINGS LEFT UNIT VIA W/C
--- NOTE | 2020-05-09 13:47 | OP ---
PATIENT NAME: TRINO SAMS MEDICAL RECORD: [id number] :33 LOCATION:D.M2 D.2118 ADMISSION DATE:05/06/20 SURGEON: ELBA VILLEDA MD DATE OF OPERATION: 05/07/2020 PROCEDURE: PTCA stent to the right. DESCRIPTION OF PROCEDURE: After a 6-Belgian introduced into the right femoral artery, AR2 guiding catheter provided fair guide catheter support followed by 300 cm Whisper wire was placed across the 80% stenosis, diffuse right down this portion of vessel. Stent deployed was a 3-0 x 26 Integrity nondrug-eluting stent up to 14 atmospheres. Final angiography shows excellent resolution of 80% diffuse stenosis, no significant residual. VALENTIN flow was 3 throughout the procedure. Heparin was used during the case. The patient was previously on Plavix. Sheath closed with ExoSeal device. TRANSINT:[id number] Voice Confirmation ID: [id number] DOCUMENT ID: [id number] ELBA VILLEDA MD at 1347 CC: [id number] DICTATION DATE: 05/07/20 0934 PLATING EQUIPMENT TENDER: 05/07/20 1105 DIS IN 05/07/20 [facility] [address] [facility] [place] [address]
--- NOTE | 2020-05-09 13:47 | OP ---
PATIENT NAME: TRINO SAMS MEDICAL RECORD: [id number] :33 LOCATION:D.M2 D.2118 ADMISSION DATE:05/06/20 SURGEON: ELBA VILLEDA MD DATE OF OPERATION: 05/06/2020 PROCEDURE: Left heart catheterization, selective coronary angiography, right femoral artery approach. CATHETERS: A 5-Cypriot sheath, 5/4 left and right Austyn, 5/4 pig. The procedure was well tolerated. The patient was returned to [place]. Sheath removed. ExoSeal device placed. FINDINGS: Left ventriculography in 30-degree SALINAS view: Normal wall motion and normal systolic function. CORONARY ANATOMY: LEFT MAIN: Left main is free of disease. LAD: Free of disease in the diagonal system. CIRCUMFLEX: Codominant system. Circumflex has a 90% plus stenosis in its mid portion. RIGHT CORONARY ARTERY: Again codominant system, has about 80% stenosis in its midportion. IMPRESSION: Intervention to circumflex right in a staged fashion. DESCRIPTION OF PROCEDURE: A 5-Cypriot sheath was exchanged for a 6-Cypriot sheath. XB LAD guiding catheter provided excellent guide catheter support followed by 300 cm Whisper wire was placed across the tightly occluded 90% stenosis to circumflex down distal portion of vessel. Pre-deployment balloon was a 2 x 5 Euphora up to 10 atmospheres. Stent deployed was a 3.0 x 15 mm Integrity nondrug eluting stent up to 14 atmospheres. Final angiography shows excellent resolution at 90% plus stenosis, no significant residual. VALENTIN flow was 3 throughout the procedure. Heparin and Integrilin were used during the case, sheath closed with ExoSeal device, Plavix loaded in lab, intervention to the office tomorrow. TRANSINT:[id number] Voice Confirmation ID: [id number] DOCUMENT ID: [id number] ELBA VILLEDA MD at 1347 CC: [id number] DICTATION DATE: 05/06/20 1326 AIRCRAFT DESIGN ENGINEER: 05/06/20 2238 DIS IN 05/07/20 [place] [id number] [place] [id number]
--- NOTE | 2020-05-09 13:47 | CN ---
PATIENT NAME:TRINO SAMS MEDICAL RECORD: [id number] : 31 LOCATION:[facility] D.2118 ADMIT DATE: 05/06/20 ACCOUNT: [id number] CONSULTING PHYSICIAN: ELBA VILLEDA MD REFERRING PHYSICIAN: JESUS MCGRAW MD DATE OF CONSULTATION: 05/06/2020 HISTORY OF PRESENT ILLNESS: A 58-year-old female with known history of coronary artery disease, status post CLEAN ROOM TECHNICIAN stenting, has history of hypertension, hyperlipidemia, as well as atrial fibrillation, admitted with acute coronary syndrome symptomology began approximately 1 week ago. She takes care of all his ADLs and does walk her rodriges in the house at the bottom and top of very hour; however, she noticed marked chest tightness and pressure, had a rest symptomology, presented to the ER. We are asked to see her concerning her cardiovascular status. PAST MEDICAL HISTORY: 1. History of hypertension. 2. Hyperlipidemia. 3. Coronary artery disease as described above. 4. Paroxysmal atrial fibrillation. ALLERGIES: None known. MEDICATIONS: Include Pravastatin 20 mg p.o. day, sotalol 40 b.i.d., Aldactone 25 every day, and aspirin 81 every day. SOCIAL HISTORY: Nonsmoker, nondrinker. She takes care of all his ADLs. She does have a set exercise program. REVIEW OF SYSTEMS: The patient reports easy bruising but reports no swollen glands. The patient reports no fever, no night sweats, no significant weight gain, no significant weight loss. No significant exercise tolerance. The patient reports no dry eyes, no irritation, no vision change. Patient reports no difficulty hearing and no ear pain. Patient reports no frequent nose bleeds or nose and sinus problems. Patient reports on arm pain on exertion. No shortness of breath while lying down. No history of heart murmur. Patient reports no cough, no wheezing or coughing up blood. Patient reports no abdominal pain, no vomiting. Normal appetite. No diarrhea and not vomiting blood. No nausea and no constipation. Patient reports no incontinence. No difficulty urinating. No hematuria. No increased frequency. Patient reports no muscle aches. No weakness, no arthralgias, no back pain. No swelling of the extremities. Patient reports no abnormal mole, no jaundice, no rashes. Reports no loss of consciousness. No weakness and no numbness. No seizures, dizziness, or headaches. The patient reports no depression, no sleep disturbance, feeling safe in a relationship and no alcohol abuse. Patient reports on fatigue. Reports no runny nose or sinus pressure. No itching, no hives, and no frequent sneezing. PHYSICAL EXAMINATION: GENERAL: No acute distress, appears younger than stated age. VITAL SIGNS: Blood pressure 150/74, pulse 64 and regular. HEENT: Normocephalic, atraumatic. NECK: No JVD or bruit. HEART: Regular. CONSULT REPORT [id number] TRINO SAMS LUNGS: Good air excursion. ABDOMEN: Soft, nontender. EXTREMITIES: Pulses 2+ with no edema. DIAGNOSTIC DATA: EKG shows sinus rhythm, nonspecific ST-T changes anteriorly. IMPRESSION: Acute coronary syndrome, progressing from stage II to IV. PLAN: For angiography, intervention based on above. TRANSINT:[id number] Voice Confirmation ID: [id number] DOCUMENT ID: [id number] ELBA VILLEDA MD at 1347 CC: [id number] DICTATION DATE: 05/06/20917 MARINE BIOLOGIST: 05/06/202022 DIS IN 05/07/20 [place] [id number] [place] [address]
== END 2020-05-07 16:00 | disposition home or self-care (01) ==
LOC: D.ER 01:08 → D.M2 06:34 → OBSVTIME 06:34 → D.M2 06:34
PROVIDERS: Family Medicine; Internal Medicine Interventional Cardiology; ADMIT Emergency Medicine; ATTEND Emergency Medicine
DX: I24.9 Acute ischemic heart disease, unspecified (principal); I10 Essential (primary) hypertension; I25.10 Atherosclerotic heart disease of native coronary artery without angina pectoris; I48.0 Paroxysmal atrial fibrillation

== ENCOUNTER → 2021-01-30 09:04 | Outpatient (CLI) | payer MEDICARE ==
[2020-10-09 13:53] VITALS: BMI 22.7
[~2021-01-30 09:04] MED LIST changes: +ALDACTONE25 MG PO; +DILTIAZEM 24HR120 M3 PO; +ERGOCAL PO; +FLORASTOR250 MG PO; +LOW DOSE ASPIRI81 M1 PO; +PLAVIX75 MG PO
[2021-01-30 10:07] LABS: ANION GAP 12.5 mmol/L (8-16); CALCIUM 10.1 mg/dL (8.5-10.1); CARBON DIOXIDE 28.6 mmol/L (21.0-32.0); CREATININE - SERUM 1.3 mg/dL (0.6-1.3); POTASSIUM - SERUM 4.1 mmol/L (3.5-5.1)
== END | disposition home or self-care (01) ==
LOC: D.CT 09:04
PROVIDERS: Family Medicine; ATTEND Nurse Practitioner Family
DX: R10.9 Unspecified abdominal pain (principal)